=== PATIENT | female | born 1985 | race Two or more races ===

== ENCOUNTER 2017-10-18 09:49 | Emergency (ER) | payer MEDICAID ==
[~2017-10-18] VITALS: Ht 149.9 cm; Wt 48.1 kg
[2017-10-18 09:56] VITALS: Ht 149.9 cm; Wt 48.1 kg
[2017-10-18 11:00] LABS: BASOPHIL % 0.3 % (0-2); PLATELET COUNT 239 x10^3mcL (130-400); RED CELL DISTRIBUTION WIDTH 14.2 % (11.5-14.5)
[2017-10-18 11:01] LABS: CALCIUM 8.4 mg/dL (8.5-10.1); CARBON DIOXIDE 25.1 mmol/L (21-32); CHLORIDE SERUM 106 mmol/L (98-107); CREATININE SERUM 0.6 mg/dL (0.6-1.0); GFR1 > 60 mL/min; GLUCOSE SERUM 88 mg/dL (74-106); POTASSIUM SERUM 3.9 mmol/L (3.5-5.1); SODIUM SERUM 140 mmol/L (136-145)
[2017-10-18 11:08] LABS: ALBUMIN 3.7 g/dL (3.4-5.0); ALKALINE PHOSPHATASE 76 U/L (46-116); ALT/SGPT 31 U/L (14-59); AMYLASE 59 U/L (25-115); AST/SGOT 19 U/L (15-37); BILIRUBIN TOTAL 1.1 mg/dL (0.20-1.00); LIPASE 108 IU/L (73-393); TOTAL PROTEIN, SERUM 7.3 g/dL (6.4-8.2)
[2017-10-18 12:25] VITALS: BP 99/70
== END 2017-10-18 12:28 | disposition home or self-care (01) ==
LOC: ED 09:49
PROVIDERS: Emergency Medicine
DX: R10.13 Epigastric pain (principal); R11.0 Nausea; R19.7 Diarrhea, unspecified
CPT/HCPCS: 36415; 83880; J1885

== ENCOUNTER 2018-08-12 18:05 | Emergency (ER) | payer MEDICAID ==
[~2018-08-12] VITALS: Ht 152.4 cm; Wt 52.2 kg
[2018-08-12 18:09] VITALS: BP 104/60; Ht 152.4 cm; Wt 52.2 kg
[2018-08-12 18:56] LABS: UA SPECIFIC GRAVITY 1.015 (1.005-1.035); microscopic required? YES; urine erythrocyte TRACE (NEGATIVE)
== END 2018-08-12 19:50 | disposition home or self-care (01) ==
LOC: ED 18:05
PROVIDERS: Specialist
DX: N39.0 Urinary tract infection, site not specified (principal); J02.9 Acute pharyngitis, unspecified; R51 Headache; M79.10 Myalgia, unspecified site
CPT/HCPCS: J1885

== ENCOUNTER 2018-11-08 12:18 | Emergency (ER) | payer MEDICAID ==
[~2018-11-08] VITALS: Ht 157.5 cm; Wt 51.7 kg
[2018-11-08 12:40] VITALS: Ht 157.5 cm; Wt 51.7 kg
[2018-11-08 14:46] LABS: BASOPHIL % 1.3 % (0-2); PLATELET COUNT 237 x10^3mcL (130-400); RED CELL DISTRIBUTION WIDTH 14.3 % (11.5-14.5)
[2018-11-08 15:17] LABS: microscopic required? YES; urine erythrocyte TRACE (NEGATIVE)
[2018-11-08 16:30] VITALS: BP 125/87
== END 2018-11-08 16:30 | disposition home or self-care (01) ==
LOC: ED 12:18
PROVIDERS: Emergency Medicine
DX: O26.891 Other specified pregnancy related conditions, first trimester (principal); R10.814 Left lower quadrant abdominal tenderness; R10.813 Right lower quadrant abdominal tenderness; R51 Headache; Z3A.01 Less than 8 weeks gestation of pregnancy
CPT/HCPCS: J2765; J7030